=== PATIENT | female | born 1950 | race Hispanic/Latino ===

== ENCOUNTER 2019-08-27 05:52 | Observation (INO) | payer MEDICARE ==
[2019-08-25 11:21] LABS: EOSINOPHILS % (AUTO) 2.4 % (0.0-8.0); HEMATOCRIT 31.8 % (36-48); LYMPHOCYTES % (AUTO) 26.6 % (21.0-51.0); MEAN CORPUSCULAR HEMOGLOBIN 32.4 pg (27.0-33.0); MEAN CORPUSCULAR HGB CONC 33.5 g/dL (32.0-36.0); MEAN CORPUSCULAR VOLUME 96.5 fL (79-99); MONOCYTES % (AUTO) 8.3 % (3.0-13.0); NEUTROPHILS % (AUTO) 61.7 % (40.0-77.0); NUCLEATED RED BLOOD CELLS 0.1 % (0.0-0.19); PLATELET COUNT (AUTO) 134 K/uL (130-400); RED BLOOD CELL COUNT(AUTO) 3.29 MIL/uL (4.00-5.50); RED CELL DISTRIBUTION WIDTH 13.7 % (11.0-15.5); WHITE BLOOD COUNT (AUTO) 5.6 K/uL (4.8-10.8)
[2019-08-25 11:32] LABS: CREATININE 1.5 mg/dL (0.5-1.5); POTASSIUM 4.9 mmol/L (3.5-5.1)
[2019-08-25 11:47] VITALS: BP 110/59
[2019-08-25 11:50] LABS: INR 0.97 (0.85-1.15); PARTIAL THROMBOPLASTIN TIME 25.9 SEC (26.3-35.5); PROTHROMBIN TIME 10.2 SEC (9.6-11.6)
--- NOTE | 2019-08-26 10:05 | NUR ---
SPOKE WITH RADHA THE BIOTRONIC REP AND HE IS AWARE OF THE CHANGEOUT FOR PT ON TOMORROW.
--- NOTE | 2019-08-26 13:03 | NUR ---
Reported labs to Doctor Goss, h/h 10.7/31.8, and environmental health nurse 1.5, no new order.
[2019-08-27] VITALS (14 sets, daily range): BP systolic 94–121; BP diastolic 42–65
[~2019-08-27] VITALS: Ht 160 cm; Wt 61.7 kg
[~2019-08-27 05:52] MED LIST: AMIO200T5 PO; ASPI-555 PO; CARV25TA PO; ERGOCALCIFEROL; FURO40TA5 PO; LORA0.5P MC; MIRT15TA6 PO; MV C1CAP5 PO; SACU1TAB7 PO; SERT50TA12 PO; SIMV-43 PO; SPIR25TA6 PO
[2019-08-27] MEDS ORDERED: SODIUM CHLORIDE 0.9% 1000ML 1,000 ML IV ONE (06:08)
[2019-08-27] MEDS ORDERED: LORA0.5T83 PO (06:46)
--- NOTE | 2019-08-27 07:30 | NUR ---
procedure pt taken to pharmacy laboratory technician via bed, no distress noted. family at bedside.
[2019-08-27] MEDS ORDERED: BUPIVACAINE/PF 0.25% 30ML VIAL IJ ONE (07:33)
[2019-08-27] MEDS ORDERED: LIDOCAINE HCL 1% MDV 50ML VIAL ONE (07:34)
[2019-08-27] MEDS ORDERED: MIDAZOLAM HCL 1 MG/ML 2ML VIAL ONE ×6 (07:34→10:21)
[2019-08-27] MEDS ORDERED: MEPERIDINE-PF 25 MG/ML SYG ONE ×6 (07:34→10:21)
[2019-08-27] MEDS ORDERED: CEFAZOLIN SODIUM 1 GM VIAL ONE (07:34)
[2019-08-27] MEDS ORDERED: CEFAZOLIN SODIUM 1 GM VIAL IVP ONE (08:00)
[2019-08-27] MEDS ORDERED: SODIUM CHLORIDE 0.9% 1000ML 1,000 ML IV SCH (08:00)
[2019-08-27] MEDS ORDERED: IOHEXOL-350 50ML VIAL IV ONE (09:45)
[2019-08-27] MEDS ORDERED: ACETAMINOPHEN-CODEINE 300/30MG TAB PO PRN (11:00)
[2019-08-27] MEDS: FE FUMARATE/FA/MV, MIN COMB#15 1 TAB PO SCH (11:03)
--- NOTE | 2019-08-27 11:20 | NUR ---
ASSESSMENT PT HERE FROM PROCEDURE BY OFFICE MACHINE SERVICER APPRENTICE STAFF JOSE ANTONIO TUTTLE. PT SLEEPY. SLING IN PLACE TO LEFT ARM ALONG WITH PRESSURE DRSG TO SITE LEFT UPPER CHEST. JOSE ANTONIO TUTTLE VERIFIED SITE WITH ME. SOFT TO TOUCH. NO BLEEDING, OOZING NOTED TO SITE. 02 AT 2 L VIA NC PLACED. FAMILY AT BEDSIDE. INSTRUCTED FAMILY ON PT BEING BEDREST. BEDPAN OFFERED. FAMILY VERBALIZED UNDERSTANDING. NS TO KVO LEFT HAND.
--- NOTE | 2019-08-27 11:35 | NUR ---
assess Dr. Luo in room to speak to family about procedure. Left upper chest dressing dry and intact, no bleeding or hematoma . Dr. luo evaluated left upper chest incision . states site "looks good"
--- NOTE | 2019-08-27 11:50 | NUR ---
MD DR. MOBLEY PAGED ALYCIA ANSWERING SERVICE TO NOTIFY HIM OF NEW PATIENT TO BE ADMITTED
--- NOTE | 2019-08-27 14:41 | NUR ---
hand off communication REPORT RECEIVED AT BEDSIDE BY JOSE ANTONIO ARREGUIN USING SBAR. PATIENT AAOX3, RESPIRATIONS UNLABORED, VITAL SIGNS STABLE. DRESSING TO LEFT UPPER CHEST IS DRY AND INTACT, PRESSURE DRESSING IN PLACE. SLING IN PLACE TO LEFT ARM. PATIENT DENIES ANY PAIN AT THIS TIME. FAMILY MEMBER AT BEDSIDE.
--- NOTE | 2019-08-27 14:41 | NUR ---
report report given to joel davis rn
--- NOTE | 2019-08-27 18:35 | NUR ---
PATIENT TRANSFERRED PATIENT TAKEN TO ROOM 203 VIA WHEELCHAIR, ACCOMPANIED BY FAMILY MEMBER AND GABRIEL, NURSE PRACTITIONER. PATIENT ASSISTED INTO BED. HANDOFF REPORT GIVEN TO JOSE ANTONIO RAE USING SBAR AT BEDSIDE. ALL QUESTIONS/CONCERNS ANSWERED, DRESSING TO LEFT CHEST WALL DRY/INTACT. PATIENT DENIES ANY PAIN AT THIS TIME, SLING TO LEFT ARM IN PLACE. SIDERAILS UP X2, BED IN LOWEST POSITION, CALL HE IN REACH.
[2019-08-27] MEDS: CARVEDILOL 25 MG TABLET PO SCH (20:44)
[2019-08-27] MEDS: VALSARTAN PO SCH (20:45)
[2019-08-27] MEDS: SACUBITRIL PO SCH (20:45)
[2019-08-27] MEDS ORDERED: SIMVASTATIN 20 MG TABLET PO SCH (21:00)
[2019-08-28 04:21] LABS: BASOPHILS % (AUTO) 0.4 % (0.0-5.0); EOSINOPHILS % (AUTO) 0.2 % (0.0-8.0); HEMATOCRIT 28.4 % (36-48); LYMPHOCYTES % (AUTO) 19.2 % (21.0-51.0); MEAN CORPUSCULAR HEMOGLOBIN 33.1 pg (27.0-33.0); MEAN CORPUSCULAR HGB CONC 34.7 g/dL (32.0-36.0); MEAN CORPUSCULAR VOLUME 95.2 fL (79-99); MONOCYTES % (AUTO) 6.8 % (3.0-13.0); NEUTROPHILS % (AUTO) 73.4 % (40.0-77.0); PLATELET COUNT (AUTO) 115 K/uL (130-400); RED BLOOD CELL COUNT(AUTO) 2.98 MIL/uL (4.00-5.50); RED CELL DISTRIBUTION WIDTH 13.3 % (11.0-15.5)
[2019-08-28 04:23] LABS: CREATININE 1.3 mg/dL (0.5-1.5)
[2019-08-28 04:46] VITALS: BP 114/47
[2019-08-28 07:43] VITALS: BP 128/55
[2019-08-28] MEDS: FE FUMARATE/FA/MV, MIN COMB#15 1 TAB PO SCH (07:54)
[2019-08-28] MEDS: CARVEDILOL 25 MG TABLET PO SCH (07:55)
[2019-08-28] MEDS: VALSARTAN PO SCH (07:57)
[2019-08-28] MEDS: SACUBITRIL PO SCH (07:57)
[2019-08-28] MEDS ORDERED: LORAZEPAM 0.5 MG TABLET PO SCH (09:00)
[2019-08-28] MEDS ORDERED: MIRTAZAPINE 15 MG TABLET PO SCH (09:00)
[2019-08-28] MEDS ORDERED: FUROSEMIDE 40 MG TABLET PO SCH (09:00)
[2019-08-28] MEDS ORDERED: SERTRALINE HCL 50 MG TABLET PO SCH (09:00)
[2019-08-28] MEDS ORDERED: SPIRONOLACTONE 25 MG TAB PO SCH (09:00)
[2019-08-28] MEDS ORDERED: ASPIRIN 81 MG EC TAB PO SCH (09:00)
[2019-08-28] MEDS ORDERED: AMIODARONE HCL 200 MG TABLET PO SCH (09:00)
--- NOTE | 2019-08-28 10:20 | NUR ---
DR. Max THAPA IN ROOM ASSESSING PM SITE AND REMOVING PRESSURE DRSG. DR. THAPA SPOKE WITH PT. AND DAUGHTER AT BEDSIDE RE:DISCHARGE DISPOSITION; QUESTIONS ANSWERED BY DR. THAPA.
[2019-08-28 12:11] VITALS: BP 91/41
--- NOTE | 2019-08-28 14:23 | NUR ---
DR. LOUIE IN ROOM SPEAKING WITH PT. RE:DISCHARGE DISPOSITION. QUESTIONS ANSWERED BY DR. LOUIE.
[2019-08-28] MEDS ORDERED: ACET1TAB12 PO (14:40)
[2019-08-28 15:32] VITALS: BP 114/52
--- NOTE | 2019-08-28 16:15 | NUR ---
[facility] REMOVED CATHETER INTACT. DISCHARGE INSTRUCTIONS GIVEN TO PT. AND PT.'S SON AT BEDSIDE, VERBALIZED MUTUAL UNDERSTANDING. NEW DRSG APPLIED; PREVIOUS DRESSING PARTIALLY REMOVED WHEN PRESSURE DRSG REMOVED BY DR. Max THAPA. Addendum: 08/28/19 at 1940 by JEAN PAUL SCOTT RN RN INCISION NOTED TO BE WELL APPROXIMATED WITH BLANCHE IN PLACE. NO HEMATOMA NOTED.
== END 2019-08-28 16:56 | disposition home or self-care (01) ==
LOC: DAH 05:52 → DAHIP 05:53 → DAH 05:53 → 2AH 19:05
PROVIDERS: ADMIT Internal Medicine; ATTEND Internal Medicine
DX: T82.110A Breakdown (mechanical) of cardiac electrode, initial encounter (principal); I42.8 Other cardiomyopathies; I12.9 Hypertensive chronic kidney disease with stage 1 through stage 4 chronic kidney disease, or unspecified chronic kidney disease; N18.9 Chronic kidney disease, unspecified; I48.0 Paroxysmal atrial fibrillation; I25.10 Atherosclerotic heart disease of native coronary artery without angina pectoris; E78.5 Hyperlipidemia, unspecified; E11.22 Type 2 diabetes mellitus with diabetic chronic kidney disease; Z86.74 Personal history of sudden cardiac arrest; Z95.810 Presence of automatic (implantable) cardiac defibrillator
CPT/HCPCS: 33216; 33264; 36415 ×2; 71045; 80048 ×2; 85025 ×2; 85610; 85730; A4215; A4216; A4221; A4222; A4223 ×3; A4606; C1769; C1882; C1898; G0378 ×35; J0690; J2175 ×6; J2250 ×6; J3490 ×2; J7030; Q9967; 33225; 99156; 99157

== ENCOUNTER → 2022-08-12 | Outpatient (CLI) | payer MEDICARE ==
[~2022-08-12] MED LIST changes: +ACET1TAB12 PO; -AMIO200T5 PO; +AMIO200T68 PO; -ASPI-555 PO; +ASPI-556 PO; -LORA0.5P MC; +LORA0.5T83 PO; +MIRT-22 PO; -MIRT15TA6 PO; +SERT-439 PO; -SERT50TA12 PO
[2022-08-12 12:23] LABS: CREATININE 2.1 mg/dL (0.5-1.5); POTASSIUM 3.4 mmol/L (3.5-5.1)
== END | disposition home or self-care (01) ==
LOC: LAB 10:48
PROVIDERS: ATTEND Internal Medicine Cardiovascular Disease
DX: I50.22 Chronic systolic (congestive) heart failure (principal); I48.0 Paroxysmal atrial fibrillation
CPT/HCPCS: 36415; 80048; 83880

== ENCOUNTER → 2022-08-22 | Outpatient (CLI) | payer MEDICARE ==
[2022-08-22 12:34] LABS: POTASSIUM 3.8 mmol/L (3.5-5.1)
== END | disposition home or self-care (01) ==
LOC: LAB 09:16
PROVIDERS: ATTEND Internal Medicine Cardiovascular Disease
DX: I50.22 Chronic systolic (congestive) heart failure (principal); I48.0 Paroxysmal atrial fibrillation
CPT/HCPCS: 36415; 80048; 83880

== ENCOUNTER → 2022-09-20 | Outpatient (CLI) | payer MEDICARE ==
[2022-09-20 12:57] LABS: CREATININE 1.7 mg/dL (0.5-1.5); POTASSIUM 3.9 mmol/L (3.5-5.1)
== END | disposition home or self-care (01) ==
LOC: LAB 10:16
PROVIDERS: ATTEND Internal Medicine Cardiovascular Disease
DX: I50.22 Chronic systolic (congestive) heart failure (principal)
CPT/HCPCS: 36415; 80048; 83880